=== PATIENT | male | born 1955 | race Caucasian/White ===

== ENCOUNTER 2020-07-01 07:45 | Emergency (ER) | payer BC ==
[~2020-07-01] VITALS: Ht 167.6 cm; Wt 107.0 kg
[~2020-07-01 07:45] MED LIST: ASPI-611 PO; ATOR20TA PO; DILT300C53 PO; METO50TA7 PO; TRIA1CAP6 PO
[2020-07-01 08:38] LABS: HEMOGLOBIN 9.5 g/dl (14.0-17.9)
[2020-07-01 08:40] LABS: BASOPHILS # (AUTO) 0.8 X10'3 (0-0.2); BASOPHILS % (AUTO) 1.5 % (0-1); EOSINOPHILS # (AUTO) 0.4 X10'3 (0-0.9); EOSINOPHILS % (AUTO) 0.7 % (0-6); HEMATOCRIT 28.5 % (42.0-52.0); LYMPHOCYTES # (AUTO) 46.8 X10'3 (1.1-4.8); LYMPHOCYTES % (AUTO) 89.4 % (21-51); MEAN CORPUSCULAR HEMOGLOBIN 37.3 PG (27.0-31.0); MEAN CORPUSCULAR HGB CONC 33.2 g/dL (33.0-36.5); MEAN CORPUSCULAR VOLUME 112.5 FL (78-98); MEAN PLATELET VOLUME 7.2 FL (7.4-10.4); MONOCYTES # (AUTO) 0.6 X10'3 (0-0.9); MONOCYTES % (AUTO) 1.1 % (2-12); NEUTROPHILS # (AUTO) 3.8 X10'3 (1.8-7.7); NEUTROPHILS % (AUTO) 7.3 % (42-75); RED BLOOD COUNT 2.53 X10'6 (4.70-6.10); RED CELL DISTRIBUTION WIDTH 20.8 % (11.5-14.5)
[2020-07-01 08:45] LABS: WHITE BLOOD COUNT 52.4 X10'3 (4.5-11.0)
[2020-07-01 08:46] LABS: PLATELET COUNT 20 X10'3 (140-440)
[2020-07-01 08:50] LABS: ALANINE AMINOTRANSFERASE 27 U/L (12-78); ALBUMIN 3.8 G/DL (3.4-5.0); ALKALINE PHOSPHATASE 87 IU/L (46-116); ANION GAP 11 (8-16); ASPARTATE AMINO TRANSFERASE 20 U/L (10-37); BILIRUBIN,TOTAL 0.6 MG/DL (0.1-1.0); BLOOD UREA NITROGEN 44 MG/DL (7-18); BUN/CREATININE RATIO 31.9 (5.4-32.0); CALCIUM 9.8 MG/DL (8.5-10.1); CHLORIDE 102 MMOL/L (99-107); CREATININE 1.38 MG/DL (0.60-1.10); GLUCOSE 149 MG/DL (70-104); SODIUM 135 MMOL/L (135-145); TOTAL CARBON DIOXIDE 22.4 MMOL/L (24-32); TOTAL PROTEIN 7.7 G/DL (6.4-8.2); eGFR 52 ML/MIN
[2020-07-01 08:59] LABS: MAGNESIUM 2.2 MG/DL (1.5-2.4)
[2020-07-01 09:00] LABS: POTASSIUM 5.1 MMOL/L (3.5-5.1)
[2020-07-01 09:02] LABS: ANISOCYTOSIS 3+; D-DIMER 4.26 MG/L FEU (0-0.50); PLATELET ESTIMATE DECREASED; TOTAL CELLS COUNTED 100
[2020-07-01 09:04] LABS: PARTIAL THROMBOPLASTIN TIME 20 SECONDS (22-32)
[2020-07-01] MEDS ORDERED: normal saline 1000ML IV soln IVB ONE (09:25)
[2020-07-01 14:46] VITALS: BP 128/59
== END 2020-07-01 14:54 | disposition short-term general hospital (02) ==
LOC: ER 07:46
DX: D72.829 Elevated white blood cell count, unspecified (principal); Z20.822 Contact with and (suspected) exposure to COVID-19; R55 Syncope and collapse; E86.0 Dehydration; N17.9 Acute kidney failure, unspecified; I10 Essential (primary) hypertension; I25.10 Atherosclerotic heart disease of native coronary artery without angina pectoris; E78.00 Pure hypercholesterolemia, unspecified; E11.9 Type 2 diabetes mellitus without complications; Z95.5 Presence of coronary angioplasty implant and graft; Z79.82 Long term (current) use of aspirin; Z79.899 Other long term (current) drug therapy; Z90.49 Acquired absence of other specified parts of digestive tract
CPT/HCPCS: 36415; 71045; 80053; 83735; 83880; 84443; 84484; 85007; 85025; 85379; 85610; 85730; 87635; 93005; 96360; 99285; C9803; J7030; 96372

== ENCOUNTER 2021-11-24 06:54 | Day surgery (SDC) | payer BC ==
[~2021-11-24 06:54] MED LIST changes: -TRIA1CAP6 PO; +TRIA1CAP88 PO
[2021-11-24] MEDS ORDERED: PONA15TA3 PO (07:27)
[2021-11-24] MEDS ORDERED: LISI10TA27 PO (07:27)
[2021-11-24] MEDS ORDERED: PRED20TA (07:27)
[2021-11-24] MEDS ORDERED: SULF1TAB45 (07:27)
[2021-11-24] MEDS ORDERED: TRIA1TAB5 PO (07:27)
[2021-11-24] MEDS ORDERED: PROC10TA10 PO (07:27)
[2021-11-24] MEDS ORDERED: PANT40TA54 PO (07:27)
[2021-11-24] MEDS ORDERED: ONDA-104 PO (07:27)
[2021-11-24 07:40] VITALS: BP 132/75
[2021-11-24] MEDS ORDERED: LIDOcaine 1% W/epiNEPHrine 1:100,000 20ml vial ONE (08:28)
[2021-11-24 09:15] VITALS: BP 133/77
== END 2021-11-24 09:35 | disposition home or self-care (01) ==
LOC: SSTAY O 06:54
PROVIDERS: ATTEND Preventive Medicine Aerospace Medicine
DX: Z45.2 Encounter for adjustment and management of vascular access device (principal); Z85.6 Personal history of leukemia
CPT/HCPCS: 36590; J3490; J7030

== ENCOUNTER 2023-07-24 13:16 | Emergency (ER) | payer BC, MEDICARE ==
[~2023-07-24] VITALS: Ht 167.6 cm; Wt 106.7 kg
[~2023-07-24 13:16] MED LIST changes: +ALLO100T PO; +AMLO2.5T2 PO; +ASPI-1265 PO; -ASPI-611 PO; -DILT300C53 PO; +DIPH-186 PO; +DOXA2TAB92 PO; +FEBU40TA6 PO; +HYDR-3686 PO; +LISI5TAB22 PO; +LORA-269 PO; +PANT40TA54 PO; +PONA15TA3 PO; +PROC10TA97 PO; -TRIA1CAP88 PO
[2023-07-24 13:35] LABS: BASOPHILS # (AUTO) 0.1 X10'3 (0-0.2); BASOPHILS % (AUTO) 0.5 % (0-1); EOSINOPHILS # (AUTO) 0.2 X10'3 (0-0.9); EOSINOPHILS % (AUTO) 2.1 % (0-6); HEMATOCRIT 42.2 % (42.0-52.0); HEMOGLOBIN 14.5 g/dl (14.0-17.9); LYMPHOCYTES # (AUTO) 0.9 X10'3 (1.1-4.8); LYMPHOCYTES % (AUTO) 8.6 % (21-51); MEAN CORPUSCULAR HEMOGLOBIN 32.4 PG (27.0-31.0); MEAN CORPUSCULAR HGB CONC 34.3 g/dL (33.0-36.5); MEAN CORPUSCULAR VOLUME 94.5 FL (78-98); MEAN PLATELET VOLUME 7.8 FL (7.4-10.4); MONOCYTES % (AUTO) 9.6 % (2-12); NEUTROPHILS # (AUTO) 8.4 X10'3 (1.8-7.7); NEUTROPHILS % (AUTO) 79.2 % (42-75); PLATELET COUNT 258 X10'3 (140-440); RED BLOOD COUNT 4.47 X10'6 (4.70-6.10); RED CELL DISTRIBUTION WIDTH 15.5 % (11.5-14.5); WHITE BLOOD COUNT 10.7 X10'3 (4.5-11.0)
[2023-07-24 14:15] LABS: ALANINE AMINOTRANSFERASE 22 U/L (12-78); ALBUMIN 3.6 G/DL (3.4-5.0); ALKALINE PHOSPHATASE 108 IU/L (46-116); ANION GAP 10 (8-16); ASPARTATE AMINO TRANSFERASE 20 U/L (10-37); BILIRUBIN,TOTAL 0.7 MG/DL (0.1-1.0); BLOOD UREA NITROGEN 18 MG/DL (7-18); BUN/CREATININE RATIO 13.4 (10.0-20.0); CALCIUM 9.6 MG/DL (8.5-10.1); CHLORIDE 110 MMOL/L (99-107); CREATININE 1.34 MG/DL (0.60-1.10); GLUCOSE 133 MG/DL (70-104); POTASSIUM 3.5 MMOL/L (3.5-5.1); SODIUM 148 MMOL/L (135-145); TOTAL CARBON DIOXIDE 27.9 MMOL/L (24-32); TOTAL PROTEIN 7.2 G/DL (6.4-8.2); eCRCL 49 ML/MIN; eGFR 53 ML/MIN
[2023-07-24 14:24] LABS: PRO BRAIN NATRIURETIC PEPTIDE 76 PG/ML (0-125)
[2023-07-24] MEDS ORDERED: nitroGLYCERIN 0.4mg SUBLingual tab SL PRN (15:40)
[2023-07-24] MEDS: aspirin 81mg tab.chew PO ONE (15:59)
[2023-07-24 18:27] VITALS: BP 135/90; PULSE 66; RESP 16; TEMP 98; O2SAT 99
== END 2023-07-24 18:29 | disposition home or self-care (01) ==
LOC: ER 13:17
DX: R07.9 Chest pain, unspecified (principal); R42 Dizziness and giddiness; I11.0 Hypertensive heart disease with heart failure; E11.9 Type 2 diabetes mellitus without complications; E78.00 Pure hypercholesterolemia, unspecified; Z88.5 Allergy status to narcotic agent; Z79.899 Other long term (current) drug therapy
CPT/HCPCS: 36415; 71045; 80053; 83880; 84484; 85025; 93005; 99285

== ENCOUNTER 2023-11-13 00:11 | Emergency (ER) | payer BC, MEDICARE ==
[~2023-11-13] VITALS: Ht 167.6 cm; Wt 107.4 kg
[~2023-11-13 00:11] MED LIST changes: -ASPI-1265 PO; +ONDA-104 PO; +PANT40SU2 PO; -PANT40TA54 PO
[2023-11-13 00:12] VITALS: BP 145/80; PULSE 66; RESP 18; TEMP 98.3; O2SAT 96
== END 2023-11-13 02:20 | disposition home or self-care (01) ==
LOC: ER 00:12
DX: G47.30 Sleep apnea, unspecified (principal); E78.00 Pure hypercholesterolemia, unspecified; I10 Essential (primary) hypertension; E11.9 Type 2 diabetes mellitus without complications; Z88.5 Allergy status to narcotic agent; Z79.899 Other long term (current) drug therapy
CPT/HCPCS: 99281

== ENCOUNTER 2024-05-10 09:31 | Emergency (ER) | payer BC ==
[~2024-05-10] VITALS: Ht 167.6 cm; Wt 110.3 kg
[2024-05-10 10:16] LABS: BASOPHILS % (AUTO) 0.3 % (0-1); EOSINOPHILS # (AUTO) 0.4 X10'3 (0-0.9); EOSINOPHILS % (AUTO) 4.7 % (0-6); HEMATOCRIT 39.9 % (42.0-52.0); HEMOGLOBIN 13.4 g/dl (14.0-17.9); LYMPHOCYTES # (AUTO) 0.6 X10'3 (1.1-4.8); LYMPHOCYTES % (AUTO) 6.5 % (21-51); MEAN CORPUSCULAR HEMOGLOBIN 36.6 PG (27.0-31.0); MEAN CORPUSCULAR HGB CONC 33.6 g/dL (33.0-36.5); MEAN CORPUSCULAR VOLUME 108.9 FL (78-98); MEAN PLATELET VOLUME 8.1 FL (7.4-10.4); MONOCYTES # (AUTO) 0.7 X10'3 (0-0.9); MONOCYTES % (AUTO) 7.8 % (2-12); NEUTROPHILS # (AUTO) 7.2 X10'3 (1.8-7.7); NEUTROPHILS % (AUTO) 80.7 % (42-75); PLATELET COUNT 230 X10'3 (140-440); RED BLOOD COUNT 3.66 X10'6 (4.70-6.10); RED CELL DISTRIBUTION WIDTH 15.4 % (11.5-14.5)
[2024-05-10 10:25] LABS: ALANINE AMINOTRANSFERASE 36 U/L (12-78); ALBUMIN 3.6 G/DL (3.4-5.0); ALBUMIN/GLOBULIN RATIO 1.2 (1.1-1.5); ALKALINE PHOSPHATASE 125 IU/L (46-116); ANION GAP 10 (8-16); BILIRUBIN,TOTAL 0.6 MG/DL (0.1-1.0); BLOOD UREA NITROGEN 26 MG/DL (7-18); CALCIUM 9.2 MG/DL (8.5-10.1); CHLORIDE 104 MMOL/L (99-107); CREATININE 1.63 MG/DL (0.60-1.10); GLUCOSE 211 MG/DL (70-104); POTASSIUM 3.3 MMOL/L (3.5-5.1); SODIUM 140 MMOL/L (135-145); TOTAL CARBON DIOXIDE 25.8 MMOL/L (24-32); TOTAL PROTEIN 6.7 G/DL (6.4-8.2); eCRCL 40 ML/MIN; eGFR 42 ML/MIN
[2024-05-10 10:40] LABS: ASPARTATE AMINO TRANSFERASE 22 U/L (10-37)
[2024-05-10 10:45] LABS: PRO BRAIN NATRIURETIC PEPTIDE 106 PG/ML (0-125)
[2024-05-10 11:14] VITALS: TEMP 98.4
[2024-05-10] MEDS: normal saline 1000ml 1,000 ML IV ONE (11:32)
[2024-05-10] MEDS: potassium chloride 10mEq ER tablet PO ONE (11:33)
[2024-05-10 11:38] LABS: PROTHROMBIN TIME 10.5 SECONDS (9.0-12.0)
[2024-05-10 11:40] LABS: BILIRUBIN,URINE NEGATIVE (Neg); CLARITY,URINE CLEAR (Clear); COLOR,URINE YELLOW (Yellow); GLUCOSE, URINE >=1000 mg/dl (Neg); KETONES,URINE NEGATIVE (Neg); LEUKOCYTE ESTERASE ,URINE NEGATIVE (Neg); NITRITES, URINE NEGATIVE (Neg); OCCULT BLOOD,URINE NEGATIVE (Neg); PROTEIN,URINE NEGATIVE (Neg); UROBILINOGEN,URINE 0.2 E.U/dL (0.2-1.0)
[2024-05-10 11:46] LABS: UA COLLECTION TYPE VOIDED
[2024-05-10 11:47] LABS: BACTERIA,URINE NONE SEEN /HPF (Neg); RBC,URINE NONE SEEN /HPF (0-2); SQUAMOUS EPITHELIAL CELL,UR NONE SEEN /LPF (FEW); WBC,URINE NONE SEEN /HPF (0-4)
[2024-05-10 13:38] VITALS: BP 145/89; PULSE 88; RESP 18; O2SAT 94
== END 2024-05-10 13:40 | disposition home or self-care (01) ==
LOC: ER 09:32
DX: R42 Dizziness and giddiness (principal); R53.1 Weakness; I25.10 Atherosclerotic heart disease of native coronary artery without angina pectoris; E78.00 Pure hypercholesterolemia, unspecified; I10 Essential (primary) hypertension; E11.9 Type 2 diabetes mellitus without complications; Z90.49 Acquired absence of other specified parts of digestive tract; Z95.5 Presence of coronary angioplasty implant and graft; Z95.1 Presence of aortocoronary bypass graft; Z88.5 Allergy status to narcotic agent; Z79.899 Other long term (current) drug therapy
CPT/HCPCS: 36415; 71045; 80053; 81001; 83735; 83880; 84484; 85025; 85610; 93005; 96360; 96361; 99285; J7030